=== PATIENT | female | born 2000 | race Caucasian/White ===

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

== ENCOUNTER 2019-06-23 11:07 | Emergency (ER) | payer OTHER ==
[2019-06-23 11:11] VITALS: RESP 18; TEMP 97.9
[2019-06-23] MEDS ORDERED: KETOROLAC 30 MG/ML 1 ML VIAL IVP STA (11:58)
[2019-06-23] MEDS ORDERED: ONDANSETRON 4 MG/2 ML VIAL IVP STA (11:58)
[2019-06-23] MEDS ORDERED: SODIUM CHLORIDE 0.9% 1,000 ML IV STA (11:58)
--- NOTE | 2019-06-23 13:05 | ED ---
Headache HPI - General Chief Complaint: Headache Stated Complaint: Nausea/headache Time Seen by Provider: 06/23/19 11:42 Source: RN notes reviewed, old records reviewed Mode of arrival: ambulatory Limitations: no limitations - History of Present Illness Initial Comments: 19 female presents with headache, nausea. She also reports lower abdominal cramping. She states that she started to have her period today. - Related Data Allergies Allergy/AdvReac Type Severity Reaction Status Date / Time No Known Allergies Allergy Verified 06/23/19 11:09 Review of Systems ROS Statement: Those systems with pertinent positive or pertinent negative responses have been documented in the HPI. ROS Other: All systems not noted in ROS Statement are negative. Past Medical History Past Medical History: No Reported History History of Any Multi-Drug Resistant Organisms: None Reported Past Surgical History: No Surgical Hx Reported Smoking Status: Never smoker Past Alcohol Use History: None Reported Past Drug Use History: None Reported General Exam - General Exam Comments Initial Comments: 19 year old female, no distress. Limitations: no limitations General appearance: alert, in no apparent distress Head exam: Present: atraumatic, normocephalic, normal inspection Eye exam: Present: normal appearance, PERRL, EOMI. Absent: scleral icterus, conjunctival injection, periorbital swelling ENT exam: Present: normal exam, mucous membranes moist Neck exam: Present: normal inspection. Absent: tenderness, meningismus, lymphadenopathy Respiratory exam: Present: normal lung sounds bilaterally. Absent: respiratory distress, wheezes, rales, rhonchi, stridor Cardiovascular Exam: Present: regular rate, normal rhythm, normal heart sounds. Absent: systolic murmur, diastolic murmur, rubs, gallop, clicks GI/Abdominal exam: Present: soft, normal bowel sounds. Absent: distended, tenderness, guarding, rebound, rigid Extremities exam: Present: normal inspection, full ROM, normal capillary refill. Absent: tenderness, pedal edema, joint swelling, calf tenderness Back exam: Present: normal inspection Neurological exam: Present: alert, oriented X3, CN II-XII intact Psychiatric exam: Present: normal affect, normal mood Skin exam: Present: warm, dry, intact, normal color. Absent: rash Course Vital Signs 06/23/19 06/23/19 11:09 14:21 Temperature 97.9 F Pulse Rate 78 88 Respiratory 18 18 Rate Blood Pressure 106/51 91/50 O2 Sat by Pulse 99 100 Oximetry Medical Decision Making - Medical Decision Making 19 year old female, with nausea, headache, and lower abdominal cramping. She started menstrual cycle today. Patient was given IV fluids, toradol and zofran. She has negative labs and negative test. Patient feels better after fluids, requests note for work. Return parameters discussed. - Lab Data Result diagrams: 06/23/19 12:47 06/23/19 12:47 Lab Results 06/23/19 06/23/19 06/23/19 Range/Units 12:34 12:34 12:34 WBC (4.0-11.0) k/uL RBC (3.80-5.40) m/uL Hgb (11.4-16.0) gm/dL Hct (34.0-46.0) % MCV (80.0-100.0) fL MCH (25.0-35.0) pg MCHC (31.0-37.0) g/dL RDW (11.5-15.5) % Plt Count (150-450) k/uL Neutrophils % % Lymphocytes % % Monocytes % % Eosinophils % % Basophils % % Neutrophils # (1.3-7.7) k/uL Lymphocytes # (1.0-4.8) k/uL Monocytes # (0-1.0) k/uL Eosinophils # (0-0.7) k/uL Basophils # (0-0.2) k/uL Sodium (137-145) mmol/L Potassium (3.5-5.1) mmol/L Chloride (98-107) mmol/L Carbon Dioxide (22-30) mmol/L Anion Gap mmol/L BUN (7-17) mg/dL Creatinine (0.52-1.04) mg/dL Est GFR (CKD-EPI)AfAm (>60 ml/min/1.73 sqM) Est GFR (CKD-EPI)NonAf (>60 ml/min/1.73 sqM) Glucose (74-99) mg/dL Calcium (8.4-10.2) mg/dL Urine Color Light Yellow Urine Appearance Clear (Clear) Urine pH 5.5 (5.0-8.0) Ur Specific [place] 1.011 (1.001-1.035) Urine Protein Negative (Negative) Urine Glucose (UA) Negative (Negative) Urine Ketones Negative (Negative) Urine Blood Moderate H (Negative) Urine Nitrite Negative (Negative) Urine Bilirubin Negative (Negative) Urine Urobilinogen <2.0 (<2.0) mg/dL Ur Leukocyte Esterase Small H (Negative) Urine RBC 48 H (0-5) /hpf Urine WBC 5 (0-5) /hpf Ur Squamous Epith Cells 5 H (0-4) /hpf Urine Mucus Occasional H (None) /hpf Urine HCG, Qual Not Detected (Not Detectd) Influenza Type A RNA Not Detected (Not Detectd) Influenza Type B (PCR) Not Detected (Not Detectd) 06/23/19 06/23/19 Range/Units 12:47 12:47 WBC 13.3 H (4.0-11.0) k/uL RBC 4.57 (3.80-5.40) m/uL Hgb 13.4 (11.4-16.0) gm/dL Hct 42.0 (34.0-46.0) % MCV 91.8 (80.0-100.0) fL MCH 29.3 (25.0-35.0) pg MCHC 31.9 (31.0-37.0) g/dL RDW 13.6 (11.5-15.5) % Plt Count 324 (150-450) k/uL Neutrophils % 79 % Lymphocytes % 11 % Monocytes % 4 % Eosinophils % 4 % Basophils % 0 % Neutrophils # 10.6 H (1.3-7.7) k/uL Lymphocytes # 1.4 (1.0-4.8) k/uL Monocytes # 0.6 (0-1.0) k/uL Eosinophils # 0.5 (0-0.7) k/uL Basophils # 0.0 (0-0.2) k/uL Sodium 138 (137-145) mmol/L Potassium 4.1 (3.5-5.1) mmol/L Chloride 102 (98-107) mmol/L Carbon Dioxide 22 (22-30) mmol/L Anion Gap 14 mmol/L BUN 9 (7-17) mg/dL Creatinine 0.63 (0.52-1.04) mg/dL Est GFR (CKD-EPI)AfAm >90 (>60 ml/min/1.73 sqM) Est GFR (CKD-EPI)NonAf >90 (>60 ml/min/1.73 sqM) Glucose 88 (74-99) mg/dL Calcium 9.5 (8.4-10.2) mg/dL Urine Color Urine Appearance (Clear) Urine pH (5.0-8.0) Ur Specific [place] (1.001-1.035) Urine Protein (Negative) Urine Glucose (UA) (Negative) Urine Ketones (Negative) Urine Blood (Negative) Urine Nitrite (Negative) Urine Bilirubin (Negative) Urine Urobilinogen (<2.0) mg/dL Ur Leukocyte Esterase (Negative) Urine RBC (0-5) /hpf Urine WBC (0-5) /hpf Ur Squamous Epith Cells (0-4) /hpf Urine Mucus (None) /hpf Urine HCG, Qual (Not Detectd) Influenza Type A RNA (Not Detectd) Influenza Type B (PCR) (Not Detectd) Disposition Clinical Impression: Headache, Menstrual cramp Disposition: HOME SELF-CARE Condition: Good Instructions (If sedation given, give patient instructions): Acute Headache (ED) Additional Instructions: Follow-up with your primary care physician. She should take Tylenol or Motrin for pain Return to the ED if any alarming signs or symptoms occur. Is patient prescribed a controlled substance at d/c from ED?: No Referrals: None,Stated [Primary Care Provider] - 1-2 days Time of Disposition: 14:03
[2019-06-23 13:06] LABS: Basophils % (A) 0 %; Eosinophils # (A) 0.5 k/uL (0-0.7); Eosinophils % (A) 4 %; HGB 13.4 gm/dL (11.4-16.0); Lymphocytes # (A) 1.4 k/uL (1.0-4.8); Lymphocytes % (A) 11 %; MCH 29.3 pg (25.0-35.0); MCHC 31.9 g/dL (31.0-37.0); MCV 91.8 fL (80.0-100.0); Mean Platelet Volume 8.6; Monocytes # (A) 0.6 k/uL (0-1.0); Monocytes % (A) 4 %; Neutrophils # (A) 10.6 k/uL (1.3-7.7); Neutrophils % (A) 79 %; Platelet Count 324 k/uL (150-450); RBC 4.57 m/uL (3.80-5.40); RDW 13.6 % (11.5-15.5); WBC 13.3 k/uL (4.0-11.0)
[2019-06-23 13:24] LABS: African American GFR (CKD) >90 (>60 ml/min/1.73 sqM); Anion Gap 14 mmol/L; Blood Urea Nitrogen 9 mg/dL (7-17); Calcium 9.5 mg/dL (8.4-10.2); Carbon Dioxide 22 mmol/L (22-30); Chloride 102 mmol/L (98-107); Glucose 88 mg/dL (74-99); Non-African American GFR(CKD) >90 (>60 ml/min/1.73 sqM); Potassium 4.1 mmol/L (3.5-5.1); Sodium 138 mmol/L (137-145)
[2019-06-23 13:49] LABS: Appearance,Urine Clear (Clear); Bilirubin,Urine Negative (Negative); Blood,Urine Moderate (Negative); Color,Urine Light Yellow; Glucose,Urine (UA) Negative (Negative); Ketones,Urine Negative (Negative); Leukocyte Esterase,Urine Small (Negative); Mucus,Urine Occasional /hpf; Nitrite,Urine Negative (Negative); PH, Urine 5.5 (5.0-8.0); Protein,Urine Negative (Negative); RBC,Urine 48 /hpf (0-5); Specific Gravity,Urine 1.011 (1.001-1.035); Squamous Epithelial Cell,Urine 5 /hpf (0-4); Urobilinogen,Urine <2.0 mg/dL (<2.0); WBC,Urine 5 /hpf (0-5)
[2019-06-23 14:23] VITALS: BP 91/50; PULSE 88
== END 2019-06-23 14:21 | disposition home or self-care (01) ==
LOC: EC 11:07
DX: N94.6 Dysmenorrhea, unspecified (principal)
CPT/HCPCS: 99284 ×2; 96374 ×2; 96375 ×2; 96361 ×2; 36415; 80048; 85025; 81001; 81025; 87502; J2405; J1885

== ENCOUNTER → 2020-01-13 | Outpatient (CLI) | payer OTHER ==
--- NOTE | 2020-01-13 13:52 | US ---
EXAMINATION TYPE: Transabdominal DATE OF EXAM: 01/13/2020 1:19 PM COMPARISON: NONE CLINICAL HISTORY: Z36 Confirm dates. Confirm dates, 1 EXAM PERFORMED: Transabdominal (TA) EXAM MEASUREMENTS: GESTATIONAL AGE / DATING Physician Established: (10 weeks/6 days) EDC: 08/04/2020 Dates by LMP: (10 weeks/6 days) EDC: 08/04/2020 Dates by First Scan: This is 1st scan Dates by Current Scan for: (11 weeks/1 days) EDC: 08/02/2020 MATERNAL ANATOMY Uterus: 8.1 x 6.5 x 7.5cm, anteverted Right Ovary: 3.4 x 2.1 x 1.7cm Left Ovary: 2.3 x 1.6 x 1.7cm Post CDS / Adnexa: wnl Presence of free fluid: no Presence of corpus luteal cyst: right ovary: 1.9 x 1.7 x 1.0cm Presence of subchorionic bleed: no GESTATION / SURVEY CRL: 4.2cm (11 weeks/1 days) Yolk Sac (normal less than 6mm): not seen Heart Rate: 167 bpm Rhythm: Normal IUP: Viable IUP Nuchal Translucency 10-14wks (normal less than 3mm): 1.7mm Date of LMP: 10/29/2019 Beta HcG (if available): Not available at time of exam. Viable single IUP measuring 11 weeks 1 day with a heart rate of 167bpm and an estimated delivery date of 08/02/2020. Single live intrauterine gestation as gestational sac and pole are seen. Yolk sac is not identi fied. No free fluid in pelvic cul-de-sac. Both ovaries are seen. Right ovary shows 1.7 cm peripheral hypervascular hypoechoic lesion thought to reflect corpus luteal cyst. No suspicious extra ovarian adnexal masses noted. IMPRESSION: Single live intrauterine gestation is confirmed, mean crown-rump length is 4.2 cm corresp onding to a 11 week 1 day old fetus.
== END | disposition home or self-care (01) ==
LOC: RADUSWWP 12:51
PROVIDERS: ATTEND Obstetrics & Gynecology
DX: Z36.9 Encounter for antenatal screening, unspecified (principal); Z3A.11 11 weeks gestation of pregnancy
CPT/HCPCS: 76801; 76813

== ENCOUNTER → 2020-02-11 | Outpatient (CLI) | payer OTHER ==
[2020-02-11 16:50] LABS: HCT 38.5 % (34.0-46.0); HGB 12.5 gm/dL (11.4-16.0); MCH 29.6 pg (25.0-35.0); MCHC 32.4 g/dL (31.0-37.0); MCV 91.3 fL (80.0-100.0); Mean Platelet Volume 7.7; Platelet Count 251 k/uL (150-450); RBC 4.22 m/uL (3.80-5.40); RDW 13.2 % (11.5-15.5); WBC 8.8 k/uL (4.0-11.0)
[2020-02-12 03:01] LABS: African American GFR (CKD) 161.5 (60.0-200.0); Non-African American GFR(CKD) 139.3 (60.0-200.0)
[2020-02-12 04:18] LABS: Hepatitis B Surface Antigen Non-Reactive (Non-Reactive)
[2020-02-12 04:41] LABS: Toxoplasma Antibody (IgG) <3.0 IU/mL (<7.2); Toxoplasma Antibody (IgM) <3.0 AU/mL (<8.0)
[2020-02-12 07:29] LABS: HIV 2 AB Non-Reactive (Non-Reactive); HIV AB P24 Non-Reactive (Non-Reactive); HIV P24 AG Non-Reactive (Non-Reactive)
== END | disposition home or self-care (01) ==
LOC: LABWHC1 15:45
PROVIDERS: ATTEND Obstetrics & Gynecology
DX: Z34.01 Encounter for supervision of normal first pregnancy, first trimester (principal); Z3A.00 Weeks of gestation of pregnancy not specified
CPT/HCPCS: 36415; 82565; 82947; 85027; 86762; 86777; 86778; 86780; 86850; 86900; 86901; 87340; 87390

== ENCOUNTER → 2020-03-26 | Outpatient (CLI) | payer OTHER | END | disposition home or self-care (01) | LOC: LABWHC1 10:33 | PROVIDERS: ATTEND Obstetrics & Gynecology | DX: Z34.82 Encounter for supervision of other normal pregnancy, second trimester (principal) | CPT/HCPCS: 36415; 82105; 82677; 84702; 86336 ==

== ENCOUNTER 2024-08-19 10:09 | Inpatient (IN) | payer OTHER ==
[2024-08-19] MEDS ORDERED: TRANEXAMIC 1,000 MG/100ML-NACL 1,000 MG in EMPTY BAG 1 BAG IV PRN (10:42)
[2024-08-19] MEDS ORDERED: TERBUTALINE 1 MG/ML VIAL SQ PRN (10:42)
[2024-08-19] MEDS ORDERED: LIDOCAINE 0.5% (PF) 5 MG/ML (50 ML SDV) SQ PRN (10:42)
[2024-08-19] MEDS ORDERED: CARBOPROST TROMETHAMINE 250 MCG/ML 1 ML AMP IM PRN (10:42)
[2024-08-19] MEDS ORDERED: miSOPROStoL 200 MCG TAB PO PRN (10:42)
[2024-08-19] MEDS ORDERED: miSOPROStoL 200 MCG TAB RECTAL PRN (10:42)
[2024-08-19] MEDS ORDERED: OXYTOCIN 10 UNIT/ML 1 ML VIAL IM PRN (10:42)
[2024-08-19] MEDS ORDERED: METHYLERGONOVINE 0.2 MG/ML 1 ML AMP IM PRN (10:42)
[2024-08-19] MEDS: LACTATED RINGERS 1,000 ML IV SCH (11:15)
[2024-08-19 11:16] LABS: Glucose,Whole Blood 91 mg/dL (70-110)
[2024-08-19] MEDS ORDERED: ROPIVACAINE 5 MG/ML 30 ML VIAL ONE (11:30)
[2024-08-19] MEDS ORDERED: fentaNYL (PF) 50 MCG/ML 5 ML AMP ONE (11:30)
[2024-08-19] MEDS ORDERED: SODIUM CHLORIDE 0.9% 250 ML BAG ONE (11:30)
--- NOTE | 2024-08-19 11:41 | US ---
EXAMINATION TYPE: US OB limited DATE OF EXAM: 08/19/2024 COMPARISON: NONE CLINICAL INDICATION: Female, 24 years old with history of ROBERT, weight.; active labor, SROM TECHNIQUE:: OBTA FINDINGS: GESTATIONAL AGE / DATING Physician Established: (37 weeks/6 days) EDC: 09/03/2024 Dates by Current Scan: (37 weeks/4 days) EDC: 09/05/2024 - only able to do femur measurement due to head was in vaginal canal SURVEY ROBERT: 3.9 cm in RLQ - nurse stated SROM, due to patients contractions and vomiting, nurse stated U S can be stopped IMPRESSION: 1. Limited exam. 2. Dates by single measurement estimates 37 weeks 4 days gestation correlating with the physician est ablish EDC of 37 weeks 6 days gestation. 3. ROBERT 3.9 right lower quadrant. 4. Cardiac activity not measured at this time [facility], , 08/19/2024 11:39 AM
[2024-08-19] MEDS: AMPICILLIN 2,000 MG in SODIUM CHLORIDE 0.9% 100 ML IVPB STA (11:45)
[2024-08-19 11:55] LABS: Basophils # (A) 0.04 10*3/uL (0.00-0.10); Basophils % (A) 0.3 %; Eosinophils # (A) 0.01 10*3/uL (0.04-0.35); Eosinophils % (A) 0.1 %; HCT 35.1 % (37.2-46.3); HGB 11.2 g/dL (12.0-15.0); Lymphocytes # (A) 1.26 10*3/uL (0.90-5.00); Lymphocytes % (A) 10.1 %; MCH 27.7 pg (27.0-32.0); MCHC 31.9 g/dL (32.0-37.0); MCV 86.7 fL (80.0-97.0); Mean Platelet Volume 12.4 fL (9.5-12.2); Monocytes # (A) 0.36 10*3/uL (0.20-1.00); Monocytes % (A) 2.9 %; Neutrophils # (A) 10.67 10*3/uL (1.80-7.70); Neutrophils % (A) 85.9 %; Platelet Count 240 10*3/uL (140-440); RBC 4.05 10*6/uL (4.10-5.20); RDW 13.3 % (11.5-14.5); WBC 12.43 10*3/uL (4.50-10.00)
[2024-08-19 12:06] LABS: Amphetamine Screen,Urine Not Detected (NotDetected); Barbiturate Screen,Urine Not Detected (NotDetected); Benzodiazepines Screen,Urine Not Detected (NotDetected); Cocaine Screen,Urine Not Detected (NotDetected); Methadone Screen, Urine Not Detected (NotDetected); Opiate Screen,Urine Not Detected (NotDetected); Oxycodone Screen, Urine Not Detected (NotDetected); Phencyclidine Screen,Urine Not Detected (NotDetected); Tricyclic Antidepressant,Urine Not Detected (NotDetected); Urn Cannabinoid Scrn Detected (NotDetected)
--- NOTE | 2024-08-19 12:17 | P.HPOB ---
History of Present Illness H&P Date: 08/19/24 Chief Complaint: SROM 24 year old presents at 37 weeks 6 days with SROM at 11am. Her cervix was 2/50/-3. she is darlin irregularly. heart tones category 1. She has had a previous C/S for oligohydramnios at 35 weeks. She had limited care with this and has not been seen since 07/01/24. She wants to TOLAC this baby. risks and benefits have been discussed. Review of Systems All systems: negative Constitutional: Denies chills, Denies fever Eyes: denies blurred vision, denies pain Ears, nose, mouth and throat: Denies headache, Denies sore throat Cardiovascular: Denies chest pain, Denies shortness of breath Respiratory: Denies cough Gastrointestinal: Denies abdominal pain, Denies diarrhea, Denies nausea, Denies vomiting Genitourinary: Denies dysuria, Denies hematuria Musculoskeletal: Denies myalgias Integumentary: Denies pruritus, Denies rash Neurological: Denies numbness, Denies weakness Psychiatric: Denies anxiety, Denies depression Endocrine: Denies fatigue, Denies weight change Past Medical History Past Medical History: No Reported History History of Any Multi-Drug Resistant Organisms: None Reported Past Surgical History: No Surgical Hx Reported Past Anesthesia/Blood Transfusion Reactions: No Reported Reaction Past Psychological History: No Psychological Hx Reported Smoking Status: Former smoker Past Alcohol Use History: None Reported Past Drug Use History: None Reported Additional Drug Use History / Comment(s): THC use prior to prenancy per pt. - Past Family History Mother Family Medical History: No Reported History Medications and Allergies Home Medications Medication Instructions Recorded Confirmed Type Vit No.179/Iron/Folic 1 tab PO DAILY 08/19/24 08/19/24 History [ Tablet] Allergies Allergy/AdvReac Type Severity Reaction Status Date / Time No Known Allergies Allergy Verified 08/19/24 10:28 Exam Osteopathic Statement: *. No significant issues noted on an osteopathic structural exam other than those noted in the History and Physical/Consult. Vital Signs Temp Pulse Resp BP Pulse Ox 08/19/24 10:47 22 08/19/24 10:28 96.5 F L 111 H 22 115/74 99 Intake and Output 08/18/24 08/19/24 08/19/24 22:59 06:59 14:59 Other: Weight 52.163 kg Heart: Regular rate and rhythm Lungs: Clear to auscultation bilaterally Abdomen: Soft, nontender Extremities: Negative Homans sign Results Result Diagrams: 08/19/24 11:10 08/19/24 11:10 Abnormal Lab Results - Last 24 Hours (Table) 08/19/24 08/19/24 Range/Units 11:10 11:10 WBC 12.43 H (4.50-10.00) 10*3/uL RBC 4.05 L (4.10-5.20) 10*6/uL Hgb 11.2 L (12.0-15.0) g/dL Hct 35.1 L (37.2-46.3) % MCHC 31.9 L (32.0-37.0) g/dL MPV 12.4 H (9.5-12.2) fL Immature Gran # 0.09 H (0.00-0.04) 10*3/uL Neutrophils # 10.67 H (1.80-7.70) 10*3/uL Eosinophils # 0.01 L (0.04-0.35) 10*3/uL U Marijuana (THC) Screen Detected H (NotDetected) Assessment and Plan (1) SROM (spontaneous rupture of membranes) Current Visit: Yes Status: Acute Code(s): JAH2427 - SNOMED Code(s): 627163660 (2) Limited care Current Visit: Yes Status: Acute Code(s): O09.30 - SUPRVSN OF PREG W INSUFFICIENT ANTENAT CARE, UNSP TRIMESTER SNOMED Code(s): 005828853 (3) Previous section Current Visit: Yes Status: Acute Code(s): Z98.891 - HISTORY OF UTERINE SCAR FROM PREVIOUS SURGERY SNOMED Code(s): 646583164 Plan: 1. admit to [facility] 2. pitocin augmentation if needed 3. anticipate normal vaginal delivery
[2024-08-19] MEDS: OXYTOCIN 30 UNITS/500 ML NS 30 UNIT in SALINE 1 500ML.BAG IV SCH (14:30)
[2024-08-19] MEDS: AMPICILLIN 1,000 MG in SODIUM CHLORIDE 0.9% 50 ML IVPB SCH (15:00)
[2024-08-19 16:06] LABS: Hepatitis B Surface Antigen Nonreactive (Nonreactive)
[2024-08-19 17:46] LABS: HIV 2 AB Non-Reactive (Non-Reactive); HIV AB P24 Non-Reactive (Non-Reactive); HIV P24 AG Non-Reactive (Non-Reactive)
[2024-08-19] MEDS ORDERED: ZOLPIDEM 5 MG TAB PO PRN (20:21)
[2024-08-19] MEDS ORDERED: HYDROCORTISONE 2.5% RECTAL CREAM 30 GM TUBE RECTAL PRN (20:21)
[2024-08-19] MEDS ORDERED: diphenhydrAMINE 50 MG CAP PO PRN (20:21)
[2024-08-19] MEDS ORDERED: diphenhydrAMINE 50 MG/ML 1 ML VIAL IVP PRN ×2 (20:21)
[2024-08-19] MEDS ORDERED: diphenhydrAMINE 25 MG CAP PO PRN (20:21)
[2024-08-19] MEDS ORDERED: SIMETHICONE 80 MG CHEWABLE PO PRN (20:21)
[2024-08-19] MEDS ORDERED: LANOLIN CREAM 1 GM TUBE TOPICAL PRN (20:21)
[2024-08-19] MEDS ORDERED: OXYTOCIN 30 UNITS/500 ML NS 30 UNIT in SALINE 1 500ML.BAG IV SCH (20:30)
[2024-08-19] MEDS: IBUPROFEN 800 MG TAB PO SCH (21:06)
[2024-08-19] MEDS: BENZOCAINE/MENTHOL SPRAY 1 GM/SPRAY AEROSOL TOPICAL PRN (21:07)
[2024-08-20] MEDS: ACETAMINOPHEN TAB 500 MG TAB PO SCH (01:53)
[2024-08-20 06:36] LABS: Basophils # (A) 0.04 10*3/uL (0.00-0.10); Basophils % (A) 0.2 %; Eosinophils # (A) 0.01 10*3/uL (0.04-0.35); HCT 30.2 % (37.2-46.3); HGB 9.8 g/dL (12.0-15.0); Lymphocytes # (A) 2.03 10*3/uL (0.90-5.00); Lymphocytes % (A) 9.5 %; MCHC 32.5 g/dL (32.0-37.0); MCV 86.3 fL (80.0-97.0); Mean Platelet Volume 12.2 fL (9.5-12.2); Monocytes # (A) 1.56 10*3/uL (0.20-1.00); Monocytes % (A) 7.3 %; Neutrophils # (A) 17.59 10*3/uL (1.80-7.70); Neutrophils % (A) 82.3 %; Platelet Count 215 10*3/uL (140-440); RDW 13.6 % (11.5-14.5); WBC 21.37 10*3/uL (4.50-10.00)
--- NOTE | 2024-08-20 08:23 | P.PROBDLV ---
Vaginal Delivery Note - . Vaginal Delivery Note: Date of service August 19, 2024 24 year old presents at 37 weeks 6 days with SROM at 11am. Her cervix was 2/50/-3. she is darlin irregularly. heart tones category 1. Patient is admitted to [facility] and quickly became uncomfortable. She got an epidural. Her cervix remained 4 cm for couple hours so Pitocin augmentation was started. Her cervix was completely dilated at 1821. She pushed, delivered a viable male infant over intact perineum under epidural anesthesia at 2009. Head delivered OA, anterior shoulder delivered gentle downward guidance followed by posterior shoulder rest of body. Nose and mouth bulb suction, clear clamped and cut, infant placed on mother's abdomen. Apgars 9, 9, weight 6 pounds 14 ounces. Placenta delivered spontaneously, intact with three-vessel cord at 2011. Vagina, cervix, perineum inspected. No lacerations noted. Estimated blood loss 100 mL. Mother and baby in stable condition.
--- NOTE | 2024-08-20 08:25 | P.DS ---
Providers Date of admission: 08/19/24 10:31 Expected date of discharge: 08/20/24 Attending physician: Nayeli Torres Primary care physician: Stated None - Discharge Diagnosis(es) (1) SROM (spontaneous rupture of membranes) Current Visit: Yes Status: Resolved (2) Limited care Current Visit: Yes Status: Resolved (3) Previous section Current Visit: Yes Status: Resolved (4) Status post normal vaginal delivery Current Visit: Yes Status: Acute Hospital Course: Patient presented with spontaneous rupture of membranes. She underwent went Pitocin augmentation and did have an epidural as well. Patient had a normal vaginal delivery. Post course has been uneventful. She denies nausea, vomiting, chest pain, shortness of breath or calf pain. Patient will be discharged home post day #1 in stable condition to follow-up with me in 6 weeks. Plan - Discharge Summary New Discharge Prescriptions: New Ibuprofen [Motrin] 800 mg PO Q8H #30 tab No Action Vit No.179/Iron/Folic [ Tablet] 1 tab PO DAILY Discharge Medication List Vit No.179/Iron/Folic [ Tablet] 1 tab PO DAILY 08/19/24 [History] Ibuprofen [Motrin] 800 mg PO Q8H #30 tab 08/20/24 [Rx] Follow up Appointment(s)/Referral(s): Nayeli Torres DO [Doctor of Osteopathic Medicine] - 6 Weeks Discharge Disposition: HOME SELF-CARE
[2024-08-20] MEDS: SENNOSIDES-DOCUSATE SODIUM 1 EACH TAB PO SCH (10:05)
[2024-08-21 08:22] VITALS: BP 122/65; PULSE 55; RESP 14; TEMP 98.4
== END 2024-08-21 17:00 | disposition home or self-care (01) | DRG 560 ==
LOC: FBPOP 10:09 → 4FBP 10:31
PROVIDERS: ADMIT Obstetrics & Gynecology; ATTEND Obstetrics & Gynecology
PROC: 10E0XZZ Delivery of Products of Conception, External Approach (ICD-10-PCS; principal; 2024-08-19)
DX: O34.219 Maternal care for unspecified type scar from previous cesarean delivery (principal); Z37.0 Single live birth; Z3A.37 37 weeks gestation of pregnancy; Z87.891 Personal history of nicotine dependence; Z28.310 Unvaccinated for COVID-19; Z28.21 Immunization not carried out because of patient refusal
CPT/HCPCS: 76815; 80306; 82947; 85025; 86762; 86780; 86850; 86900; 86901; 87340; 87390; 99213